=== PATIENT | female | born 1970 | race Caucasian/White ===

== ENCOUNTER 2019-05-01 11:35 | Day surgery (SDC) | payer BC ==
[~2019-05-01] VITALS: Ht 170.2 cm; Wt 77.9 kg
[~2019-05-01 11:35] MED LIST: ACYC400 PO; BIRTH CONTROL; HYDACE5 PO; HYOS.125 PO; IBUP600 PO; MONT10T PO; OXYACE5T PO; PROAIR DIGIHAL90 MCG INH; RANI150; SULTRIDS PO
== END 2019-05-01 14:02 | disposition home or self-care (01) ==
LOC: ORSCSDS 11:35
PROVIDERS: Internal Medicine Gastroenterology
PROC: 0DBM8ZX Excision of Descending Colon, Via Natural or Artificial Opening Endoscopic, Diagnostic (ICD-10-PCS; principal; 2019-05-01 13:00)
PROC: 0DBK8ZX Excision of Ascending Colon, Via Natural or Artificial Opening Endoscopic, Diagnostic (ICD-10-PCS; principal; 2019-05-01 13:00)
PROC: 0DBH8ZX Excision of Cecum, Via Natural or Artificial Opening Endoscopic, Diagnostic (ICD-10-PCS; principal; 2019-05-01 13:00)
PROC: 0DBP8ZX Excision of Rectum, Via Natural or Artificial Opening Endoscopic, Diagnostic (ICD-10-PCS; principal; 2019-05-01 13:00)
PROC: 0DBE8ZX Excision of Large Intestine, Via Natural or Artificial Opening Endoscopic, Diagnostic (ICD-10-PCS; principal; 2019-05-01 13:00)
DX: K62.5 Hemorrhage of anus and rectum (principal); R10.84 Generalized abdominal pain; D12.0 Benign neoplasm of cecum; D12.2 Benign neoplasm of ascending colon; D12.4 Benign neoplasm of descending colon; K62.1 Rectal polyp; Z87.891 Personal history of nicotine dependence; Z79.899 Other long term (current) drug therapy
CPT/HCPCS: 88305; J2704; J7120

== ENCOUNTER → 2019-11-01 | Outpatient (CLI) | payer BC | END | disposition home or self-care (01) | LOC: LAB SHORT 15:12 → LAB 15:12 | DX: N39.0 Urinary tract infection, site not specified (principal) | CPT/HCPCS: 87086 ==

== ENCOUNTER 2021-02-10 10:44 | Day surgery (SDC) | payer BC ==
[~2021-02-10] VITALS: Ht 170.2 cm; Wt 78.1 kg
[2021-02-10] MEDS ORDERED: IBUP800 PO (11:21)
== END 2021-02-10 12:32 | disposition home or self-care (01) ==
LOC: ORSCSDS 10:44
PROVIDERS: Anesthesiology
PROC: 3E0R33Z Introduction of Anti-inflammatory into Spinal Canal, Percutaneous Approach (ICD-10-PCS; principal; 2021-02-10 12:30)
DX: M50.122 Cervical disc disorder at C5-C6 level with radiculopathy (principal); M48.02 Spinal stenosis, cervical region; K21.9 Gastro-esophageal reflux disease without esophagitis; J45.909 Unspecified asthma, uncomplicated; M54.2 Cervicalgia; Z79.899 Other long term (current) drug therapy
CPT/HCPCS: J1040; J2250; J3010; J7040

== ENCOUNTER → 2021-06-09 | Outpatient (CLI) | payer BC ==
[~2021-06-09] MED LIST changes: +IBUP800 PO
== END | disposition home or self-care (01) ==
LOC: PLD 11:07 → LAB SHORT 11:07
DX: L57.0 Actinic keratosis (principal)
CPT/HCPCS: 88305

== ENCOUNTER → 2021-12-20 | Outpatient (CLI) | payer BC ==
[2021-12-23 10:43] LABS: Candida species (DNA Probe) Negative (NEGATIVE); G. vaginalis (DNA Probe) Negative (NEGATIVE); T. vaginalis (DNA Probe) Negative (NEGATIVE)
== END | disposition home or self-care (01) ==
LOC: LAB 12:10 → LAB SHORT 12:10
PROVIDERS: Family Medicine
DX: N89.8 Other specified noninflammatory disorders of vagina (principal)
CPT/HCPCS: 87480; 87510; 87660